=== PATIENT | male | born 2000 | race Caucasian/White ===

== ENCOUNTER 2023-10-25 07:53 | Emergency (ER) | payer OTHER, SELFPAY ==
[2023-10-25 07:54] VITALS: BP 95/66
[2023-10-25 08:05] VITALS: BMI 18.5
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
[2023-10-25] MEDS: AUGMENTIN 875 MG/125 MG 1 TABLET PO (08:43)
== END 2023-10-25 08:58 | disposition home or self-care (01) ==
LOC: EMR 07:53
PROVIDERS: EMERGENCY PHYSICIAN Student in an Organized Health Care Education/Training Program; FAMILY PHYSICIAN Family Medicine
DX: K05.20 Aggressive periodontitis, unspecified (principal)
CPT/HCPCS: 99283; 41800